=== PATIENT | female | born 1955 | race Caucasian/White ===

== ENCOUNTER 2024-09-08 14:59 | Emergency (ER) | payer MEDICARE, OTHER, SELFPAY ==
[2024-09-08 15:01] VITALS: BP 125/90
[2024-09-08 15:03] VITALS: BMI 22.9
[2024-09-08 15:04] VITALS: BP 125/90
--- NOTE | 2024-09-08 15:10 | ED.GENMED ---
History of Present Illness
General
Chief Complaint: Heart Rate Problem
Source: patient
Exam Limitations: none
Time Seen by Provider: 09/08/24 15:02
History of Present Illness
History of Present Illness:
See MDM
Past History
Past History
ED Past Medical History: HTN and Psychiatric
ED Past Surgical History: None
Social History
Tobacco: Non-smoker
Alcohol: Daily
Phy Exam
Physical Exam
Physical Exam:
See MDM
Scores
[id number] Score for Afib Stroke Risk
Age in Years (65=0, 65-74=1, >/=75=2): 65-74
Sex (Female=+1): Female
Congestive Heart Failure History (Yes=+1): No
Hypertension History (Yes=+1): Yes
Stroke/TIA/Thromboembolism History (Yes=+2): No
Vascular Disease History (Yes=+1): No
Diabetes Mellitus (Yes=+1): No
Score: 3
Anticoagulation Recommendations: Recommend anticoagulation (as validated in nonvalvular fib)
Course
Orders/Labs/Results
Orders:
Orders
09/08/24 15:02
Electrocardiogram (*1) Urgent
Reason for Study: Atrial Fibrillation
EKG- Treatment ONCE
09/08/24 15:08
0.9% Sodium Chloride 1000 ml [Nss] 1,000 ml IV BOLUS
Diltiazem HCl [Cardizem] 15 mg IV NOW STA
09/08/24 15:10
Complete Blood Count/With Diff Urgent
Comprehensive Metabolic Panel Urgent
Magnesium Urgent
TSH Reflex To Free T4 Urgent
09/08/24 16:11
Apixaban [Eliquis] 5 mg PO ONCE ONE
Abnormal Lab Results
09/08/24
15:10
WBC 11.0 H 10^3/uL
(4.8-10.8)
Hgb 16.2 H g/dL
(12.0-16.0)
MCH 32.7 H pg
(27.0-31.0)
RDW 15.2 H %
(11.5-14.5)
Abs Immat Gran (auto) 0.1 H 10^3/uL
(0-0.05)
Absolute Neuts (auto) 9.0 H 10^3/uL
(1.4-6.5)
Absolute Lymphs (auto) 0.9 L 10^3/uL
(1.2-3.4)
Absolute Monos (auto) 1.0 H 10^3/uL
(0.1-0.6)
Neutrophils % 81.9 H %
(42.2-75.2)
Lymphocytes % 7.9 L %
(20.5-51.1)
Sodium 133 L mmol/L
(135-145)
Carbon Dioxide 21 L mmol/L
(22-30)
Glucose 120 H mg/dl
(70-99)
AST 54 H U/L
(14-36)
Alkaline Phosphatase 130 H U/L
(38-126)
09/08/24 15:10
09/08/24 15:10
Vital Signs
Initial and Last Documented VS:
Initial Vital Signs
BP
125/90
09/08/24 15:01
Last Documented Vital Signs
Temp Pulse Resp BP Pulse Ox
98.6 F 121 22 124/76 97
09/08/24 15:04 09/08/24 15:45 09/08/24 15:45 09/08/24 15:34 09/08/24 15:34
MDM/Problems Addressed
Differential Diagnosis Includes:
HPI and MDM Narrative:
69-year-old female presenting for evaluation of new onset A-fib. Patient went to her PCP office for routine appointment. While there, she was found to be tachycardic and in A-fib. Patient denies prior history of A-fib and denies any shortness of
breath or palpitations. Patient states she feels like her normal self. Given new onset A-fib, will obtain basic blood work including thyroid testing. She is very calm and comfortable at rest and denies chest pain or shortness of breath. If
patient can be rate controlled, will consider discharge with anticoagulation
Physical exam
General: Well appearing and non-toxic
HEENT: protecting airway
Neck: appears supple
CV: No evidence of cyanosis. Tachycardic and irregular
Resp: No accessory muscle use. Lungs clear
Abd: Non-distended
Extremities: No deformities. No leg edema
Neuro: alert
Psych: Normal affect
Skin: Intact
Problems Addressed including Acute and Chronic Conditions affecting care:
1. New onset A-fib
Acuity: acute
Prognosis: stable
Details: Will rate control with IV Cardizem and obtain basic blood work
Updates
Patient rate controlled. Blood work without clinically significant abnormality. Case discussed with cardiology since she is already on 100 mg of Toprol daily. We discussed starting this twice daily and patient placed on cardiac callback tracker.
Patient started on Eliquis
Patient requesting refill of her Ativan.
Differential Diagnosis (but not limited to): Hyperthyroidism, new onset A-fib
Testing considered: Troponin but she denies chest pain or shortness of breath
Drug therapy (if applicable): OTC meds, please see d/c instruction regarding Rx drugs
Amount and/or Complexity of Data Reviewed
Clinical info obtained from: Patient
External data reviewed: N/A
Labs I independently reviewed (but not limited to): TSH normal
Radiology: N/A
Pulse Ox: not hypoxic
EKG independently reviewed: A-fib with RVR, normal axis, no STEMI
Rn Critical Care: A-fib
Critical Care: N/A
Risk of Complication:
Social Determinants of health: Good social support
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
Escalation of Care includes Admit/Obs: After being observed in the Emergency Department, pt stable for discharge.
Occasional wrong word or 'sound a like' substitutions may have occurred due to the inherent limitations of voice recognition software. Read the chart carefully and recognize, using context, where substitutions have occurred.
*Critical Care Note
Total Time (30-74mins, 75-104mins- exclusive of procedures): Not Applicable
ED Attending Note
-
Portions of this chart may have been created with voice recognition software.� Occasional wrong word or��sound alike� substitutions may have occurred due to the inherent limitations of voice recognition software.
Discharge Plan
Departure
Patient Disposition: Home (Routine Discharge)
Date of Disposition: 09/08/24
Time of Disposition: 16:27
Patient with high blood pressure during this ER visit?: No
Discharge Problem:
Atrial fibrillation, new onset
Instructions: Atrial Fibrillation (DC)
Prescriptions:
New
metoprolol succinate [Toprol XL] 100 mg tablet extended release 24 hr
100 mg PO BID Qty: 60 0RF
lorazepam 2 mg tablet
2 mg PO BID PRN (Reason: anxiety) Qty: 10 0RF
Referrals:
WILL SHULTZ MD [Family Provider] -
Guille Whittaker MD [Active] -
Activity Restrictions/Additional Instructions:
Please return for any worsening symptoms.
You may return at any time if you have further concerns.
Please follow up with your doctor at the first available appointment, preferably this week.
You were placed on the cardiac callback tracker. Someone from their office should call you in the next few days. If you do not hear from them in the next few days, please give them a call.
The fashion editor is recommending that you take your 100 mg metoprolol XL twice a day now.
Thank you for choosing [facility].
Interventions
Interventions:
*Risk Screen - Suicide Last Done: 09/08/24 15:04
*General Assessment Last Done: 09/08/24 15:04
*Neglect/Abuse Screening Last Done: 09/08/24 15:04
*ED COVID-19 Vaccine History Last Done: 09/08/24 15:04
ED- Cardiac Assessment Last Done: 09/08/24 15:19
ED- Pulmonary Assessment Last Done: 09/08/24 15:19
Discharge Date and Time
Print Language: [place]
[2024-09-08 15:23] LABS: % Basophils 0.4 % (0-2); % Immature Granulocytes 0.5 % (0-0.5); % Lymphocytes 7.9 % (20.5-51.1); % Monocytes 9.3 % (1.7-9.3); % Neutrophils 81.9 % (42.2-75.2); Absolute Immature Granulocytes 0.1 10^3/uL (0-0.05); Absolute Lymphocytes 0.9 10^3/uL (1.2-3.4); Hematocrit 45.6 % (37.0-47.0); Hemoglobin 16.2 g/dL (12.0-16.0); Mean Corp Hgb Conc. 35.5 g/dL (33.0-37.0); Mean Corpuscular Hgb 32.7 pg (27.0-31.0); Mean Corpuscular Volume 92.1 fL (81.0-99.0); Mean Platelet Volume 9.2 fL (7.4-10.4); Nucleated Red Blood Cells % 0 %; Platelet Count 157 10^3/uL (130-400); Red Blood Cell Count 4.95 10^6/uL (4.20-5.40); Red Cell Dist. Width 15.2 % (11.5-14.5)
[2024-09-08 15:29] LABS: ALT (SGPT) 26 U/L (0-35); AST (SGOT) 54 U/L (14-36); Albumin 4.6 g/dl (3.5-5.0); Alkaline Phosphatase 130 U/L (38-126); Blood Urea Nitrogen 11 mg/dl (7-17); Calcium 9.9 mg/dl (8.4-10.2); Carbon Dioxide 21 mmol/L (22-30); Chloride 101 mmol/L (98-107); Estimated Creatinine Clearance 65 ml/min; Glucose 120 mg/dl (70-99); Magnesium 1.8 mg/dl (1.6-2.3); Potassium 3.9 mmol/L (3.5-5.1); Sodium 133 mmol/L (135-145); Total Bilirubin 1.2 mg/dl (0.2-1.3); Total Protein 6.9 g/dl (6.3-8.2); eGFR > 60.00
[2024-09-08] MEDS: CARDIZEM 15 MG IV (15:30)
[2024-09-08] MEDS: NSS 1000 IV (15:31)
[2024-09-08 15:34] VITALS: BP 124/76
[2024-09-08 15:59] LABS: TSH Reflex To Free T4 2.72 uIU/ml (0.47-4.68)
[2024-09-08] MEDS: ELIQUIS 5 MG PO (16:45)
== END 2024-09-08 16:47 | disposition home or self-care (01) ==
LOC: EMR 14:59
PROVIDERS: EMERGENCY PHYSICIAN Student in an Organized Health Care Education/Training Program; FAMILY PHYSICIAN Student in an Organized Health Care Education/Training Program
DX: I48.91 Unspecified atrial fibrillation (principal); I10 Essential (primary) hypertension
CPT/HCPCS: 96374; 96361; 99284; 80053; 83735; 84443; 85025; 93005